=== PATIENT | male | born 1935 | race Caucasian/White ===

== ENCOUNTER 2024-05-02 16:34 | Inpatient (IN) ==
[2024-05-02 17:44] LABS: Basophils # (Auto) 0.01 K/mcL (0.00-0.30); Basophils % (Auto) 0.2 % (0.0-2.0); Eosinophils # (Auto) 0.05 K/mcL (0.00-0.70); Eosinophils % (Auto) 1.1 % (0.0-7.0); Hematocrit 32.9 % (40.1-51.0); Hemoglobin 10.8 g/dL (13.7-17.5); Lymphocytes % (Auto) 10.6 % (15.5-49.0); Mean Cell Volume 100.6 fL (80.0-100.0); Mean Corpuscular HGB Conc 32.8 g/dL (31.0-36.0); Mean Platelet Volume 10.4 fL (8.8-12.5); Monocytes # (Auto) 0.12 K/mcL (0.10-0.90); Monocytes % (Auto) 2.5 % (1.0-12.0); Neutrophils % (Auto) 85.4 % (38.0-78.0); Platelet Count 91 K/mcL (140-440); RBC 3.27 M/mcL (4.63-6.08); WBC 4.7 K/mcL (4.5-11.0)
[2024-05-02 18:04] LABS: Thyroid Stimulating Hormone 0.74 uIU/mL (0.27-5.01)
[2024-05-02 18:14] LABS: ALT/SGPT 23 U/L (<40); AST/SGOT 63 U/L (<40); Albumin 2.9 gm/dL (3.2-5.2); Albumin/Globulin Ratio 0.9 (1.0-2.3); Alkaline Phosphatase 83 U/L (39-117); Bilirubin,Total 0.6 mg/dL (0.1-1.0); Blood Urea Nitrogen 25 mg/dL (8-23); Calcium 9.1 mg/dL (8.6-10.4); Carbon Dioxide 24 mmol/L (22-30); Chloride 98 mmol/L (96-108); Globulin 3.1 gm/dL (2.2-3.7); Glomerular Filtration Rate 38; Glucose 379 mg/dL (70-105); Potassium 4.6 mmol/L (3.3-5.1); Sodium 135 mmol/L (133-145)
[2024-05-02 18:47] LABS: Appearance,Urine Clear (Clear); Bacteria,Urine Few /hpf (0); Bilirubin,Urine Negative (Negative); Color,Urine Yellow; Culture Indicated,Urine No; Glucose,Urine (UA) >=1000 mg/dL (Negative); Ketones,Urine Negative (Negative); Leukocyte Esterase,Urine Negative /uL (Negative); Mucus,Urine Few /hpf; Nitrate,Urine Negative (Negative); Protein,Urine 30 mg/dL (Negative); Specific Gravity,Urine 1.015 (1.000-1.035); Urine Blood Moderate ery/mcL (Negative); Urine Hyaline Cast 3 /lph (0-2); Urine RBC 12 /hpf (0-3); Urine Squamous Epithelial Cell 5 /hpf (0-4); Urine WBC 3 /hpf (0-4); Urobilinogen,Urine Normal
[2024-05-02 18:52] LABS: Free T4 (Free Thyroxine) 1.31 ng/dL (0.93-1.70)
[2024-05-02 20:56] LABS: Uric Acid 4.2 mg/dL (2.5-8.0)
[2024-05-02] MEDS ORDERED: POTASSIUM CHLORIDE 40 MEQ in DEXTROSE 5% IN WATER 500 ML IV PRN (22:10)
[2024-05-02] MEDS ORDERED: DEXTROSE 31 GM ORAL.SUSP PO PRN (22:10)
[2024-05-02] MEDS ORDERED: ACETAMINOPHEN 160 MG/5 ML ORAL.SOL PO PRN (22:10)
[2024-05-02] MEDS ORDERED: POLYETHYLENE GLYCOL 3350 17 GM PACKET PO PRN (22:10)
[2024-05-02] MEDS ORDERED: DEXTROSE 50% 50 ML VIAL IV PRN (22:10)
[2024-05-02] MEDS ORDERED: IPRATROPIUM/ALBUTEROL 3 ML AMPUL.NEB NEB PRN (22:10)
[2024-05-02] MEDS ORDERED: METOPROLOL TARTRATE 5 MG/5 ML VIAL IV PRN (22:10)
[2024-05-02] MEDS ORDERED: MAGNESIUM SULFATE 2 GM/50 ML BAG IV PRN (22:10)
[2024-05-02] MEDS ORDERED: LABETALOL HCL 20 MG/4 ML VIAL IV PRN (22:10)
[2024-05-02] MEDS ORDERED: POTASSIUM CHLORIDE 20 MEQ TABLET PO PRN ×2 (22:10)
[2024-05-02 22:28] LABS: INR 1.1 (0.9-1.1); Partial Thromboplastin Time 31.9 sec (20.0-37.0); Prothrombin Time 14.6 sec (11.9-14.5)
[2024-05-02] MEDS: HEPARIN 5,000 UNIT/ML VIAL IV ONE (22:34)
[2024-05-02] MEDS: HEPARIN SOD,PORK IN 0.45% NACL 25,000 UNIT in PREMIX 1 BAG IV SCH (22:40)
[2024-05-02] MEDS: 0.9 % SODIUM CHLORIDE 1,000 ML IV ONE (22:40)
[2024-05-02] MEDS: HEPARIN SOD,PORK IN 0.45% NACL 500 ML IV ONE (22:49)
[2024-05-02] MEDS: DOCUSATE SODIUM 100 MG CAPSULE PO SCH (23:11)
[2024-05-02] MEDS: INSULIN LISPRO 1 UNIT/0.01 ML UNIT SQ SCH (23:12)
[2024-05-03] MEDS: INSULIN LISPRO 1 UNIT/0.01 ML UNIT SQ ONE ×2 (02:06→03:51)
[2024-05-03 04:58] LABS: Basophils # (Auto) 0.02 K/mcL (0.00-0.30); Basophils % (Auto) 0.3 % (0.0-2.0); Eosinophils # (Auto) 0.05 K/mcL (0.00-0.70); Eosinophils % (Auto) 0.9 % (0.0-7.0); Hemoglobin 10.2 g/dL (13.7-17.5); Lymphocytes # (Auto) 0.83 K/mcL (1.50-4.80); Lymphocytes % (Auto) 14.2 % (15.5-49.0); Mean Cell Volume 101.6 fL (80.0-100.0); Mean Corpuscular HGB Conc 32.9 g/dL (31.0-36.0); Mean Platelet Volume 10.1 fL (8.8-12.5); Monocytes # (Auto) 0.22 K/mcL (0.10-0.90); Monocytes % (Auto) 3.8 % (1.0-12.0); Neutrophils % (Auto) 80.6 % (38.0-78.0); Platelet Count 72 K/mcL (140-440); RBC 3.05 M/mcL (4.63-6.08); Red Cell Distribution Width 14.1 % (11.5-14.5); WBC 5.8 K/mcL (4.5-11.0)
[2024-05-03 05:09] LABS: ALT/SGPT 24 U/L (<40); AST/SGOT 56 U/L (<40); Albumin 2.5 gm/dL (3.2-5.2); Albumin/Globulin Ratio 0.9 (1.0-2.3); Alkaline Phosphatase 74 U/L (39-117); Bilirubin,Direct 0.3 mg/dL (<0.3); Bilirubin,Total 0.5 mg/dL (0.1-1.0); Blood Urea Nitrogen 22 mg/dL (8-23); Calcium 8.5 mg/dL (8.6-10.4); Carbon Dioxide 25 mmol/L (22-30); Chloride 100 mmol/L (96-108); Globulin 2.8 gm/dL (2.2-3.7); Glomerular Filtration Rate 45; Glucose 256 mg/dL (70-105); Lactate Dehydrogenase 222 U/L (135-225); Phosphorous 2.6 mg/dL (2.5-4.5); Potassium 4.3 mmol/L (3.3-5.1); Sodium 134 mmol/L (133-145); Triglycerides 61 mg/dL (<150); Uric Acid 3.8 mg/dL (2.5-8.0)
[2024-05-03] MEDS: INSULIN GLARGINE, HUMAN 1 UNIT/0.01 ML SQ SCH (09:30)
[2024-05-03] MEDS: PRAMIPEXOLE 0.25 MG TABLET PO SCH (09:31)
[2024-05-03] MEDS: GABAPENTIN 400 MG CAPSULE PO SCH ×2 (09:31→21:17)
[2024-05-03] MEDS: LEVOTHYROXINE 50 MCG TABLET PO SCH (09:32)
[2024-05-03] MEDS: FINASTERIDE 5 MG TABLET PO SCH (09:32)
[2024-05-03] MEDS: AMIODARONE HCL 200 MG TABLET PO SCH (09:32)
[2024-05-03] MEDS: INSULIN LISPRO 1 UNIT/0.01 ML UNIT SQ SCH (12:34)
[2024-05-03] MEDS: HEPARIN SOD,PORK IN 0.45% NACL 500 ML IV ONE (14:50)
[2024-05-03] MEDS: ATORVASTATIN 40 MG TABLET PO SCH (21:18)
[2024-05-03] MEDS: DOXAZOSIN 4 MG TABLET PO SCH (21:19)
[2024-05-03] MEDS: LATANOPROST OPHTH DROPS 2.5ML BOTTLE OU SCH (21:19)
[2024-05-03] MEDS: traZODone HCL 100 MG TABLET PO SCH (21:19)
[2024-05-04] MEDS: HEPARIN SOD,PORK IN 0.45% NACL 500 ML IV ONE (05:07)
[2024-05-04 06:43] LABS: Basophils # (Auto) 0.02 K/mcL (0.00-0.30); Basophils % (Auto) 0.3 % (0.0-2.0); Eosinophils # (Auto) 0.05 K/mcL (0.00-0.70); Eosinophils % (Auto) 0.8 % (0.0-7.0); Hematocrit 31.6 % (40.1-51.0); Hemoglobin 10.5 g/dL (13.7-17.5); Lymphocytes # (Auto) 1.04 K/mcL (1.50-4.80); Lymphocytes % (Auto) 16.5 % (15.5-49.0); Mean Cell Volume 100.3 fL (80.0-100.0); Mean Corpuscular HGB Conc 33.2 g/dL (31.0-36.0); Mean Platelet Volume 11.2 fL (8.8-12.5); Monocytes # (Auto) 0.31 K/mcL (0.10-0.90); Monocytes % (Auto) 4.9 % (1.0-12.0); Neutrophils % (Auto) 75.9 % (38.0-78.0); Platelet Count 79 K/mcL (140-440); RBC 3.15 M/mcL (4.63-6.08); WBC 6.3 K/mcL (4.5-11.0)
[2024-05-04 07:05] LABS: ALT/SGPT 28 U/L (<40); AST/SGOT 59 U/L (<40); Albumin 2.5 gm/dL (3.2-5.2); Albumin/Globulin Ratio 0.9 (1.0-2.3); Alkaline Phosphatase 79 U/L (39-117); Bilirubin,Direct 0.2 mg/dL (<0.3); Bilirubin,Total 0.5 mg/dL (0.1-1.0); Blood Urea Nitrogen 19 mg/dL (8-23); Calcium 8.2 mg/dL (8.6-10.4); Carbon Dioxide 24 mmol/L (22-30); Chloride 100 mmol/L (96-108); Globulin 2.8 gm/dL (2.2-3.7); Glomerular Filtration Rate 54; Glucose 259 mg/dL (70-105); Lactate Dehydrogenase 255 U/L (135-225); Phosphorous 2.4 mg/dL (2.5-4.5); Potassium 4.4 mmol/L (3.3-5.1); Sodium 135 mmol/L (133-145); Triglycerides 68 mg/dL (<150); Uric Acid 3.7 mg/dL (2.5-8.0)
[2024-05-04] MEDS: APIXABAN 5 MG TABLET PO SCH (08:23)
[2024-05-04] MEDS: ALBUMIN HUMAN 12.5 GM/50 ML VIAL IV ONE (09:49)
[2024-05-04] MEDS: FUROSEMIDE 40 MG/4 ML VIAL IV ONE (11:21)
[2024-05-04] MEDS: INSULIN GLARGINE, HUMAN 1 UNIT/0.01 ML SQ SCH (20:28)
[2024-05-05 06:51] LABS: ALT/SGPT 45 U/L (<40); AST/SGOT 149 U/L (<40); Albumin 2.6 gm/dL (3.2-5.2); Albumin/Globulin Ratio 0.9 (1.0-2.3); Alkaline Phosphatase 82 U/L (39-117); Bilirubin,Direct 0.2 mg/dL (<0.3); Bilirubin,Total 0.5 mg/dL (0.1-1.0); Blood Urea Nitrogen 22 mg/dL (8-23); Calcium 8.2 mg/dL (8.6-10.4); Carbon Dioxide 27 mmol/L (22-30); Chloride 99 mmol/L (96-108); Globulin 2.9 gm/dL (2.2-3.7); Glomerular Filtration Rate 49; Glucose 269 mg/dL (70-105); Lactate Dehydrogenase 308 U/L (135-225); Phosphorous 2.7 mg/dL (2.5-4.5); Sodium 136 mmol/L (133-145); Triglycerides 78 mg/dL (<150); Uric Acid 4.1 mg/dL (2.5-8.0)
[2024-05-05] MEDS: FUROSEMIDE 40 MG/4 ML VIAL IV SCH (10:11)
[2024-05-05] MEDS: ACETAMINOPHEN 325 MG TABLET PO PRN (11:12)
[2024-05-05] MEDS: INSULIN LISPRO 1 UNIT/0.01 ML UNIT SQ SCH (16:49)
[2024-05-05] MEDS ORDERED: INSULIN LISPRO 1 UNIT/0.01 ML UNIT SQ SCH (17:00)
[2024-05-06] MEDS ORDERED: INSULIN LISPRO 1 UNIT/0.01 ML UNIT SQ SCH (08:10)
[2024-05-06] MEDS: INSULIN LISPRO 1 UNIT/0.01 ML UNIT SQ SCH ×2 (09:10→09:51)
[2024-05-06] MEDS: acetaZOLAMIDE SOD 500 MG VIAL IV ONE (14:41)
[2024-05-06] MEDS: FUROSEMIDE 40 MG/4 ML VIAL IV SCH (14:41)
[2024-05-06] MEDS: LIDOCAINE 4% TOP PATCH TOPICAL SCH (22:54)
[2024-05-07] MEDS: acetaZOLAMIDE SOD 500 MG VIAL IV SCH (08:37)
[2024-05-07] MEDS: INSULIN LISPRO 1 UNIT/0.01 ML UNIT SQ SCH (11:56)
[2024-05-07] MEDS: METOLAZONE 2.5 MG TABLET PO ONE (13:37)
[2024-05-07] MEDS: FUROSEMIDE 40 MG/4 ML VIAL IV SCH (14:00)
[2024-05-07] MEDS: SENNOSIDES 1 TABLET PO PRN (20:21)
[2024-05-07] MEDS: INSULIN GLARGINE, HUMAN 1 UNIT/0.01 ML SQ SCH (20:54)
[2024-05-08 06:58] LABS: ALT/SGPT 91 U/L (<40); AST/SGOT 124 U/L (<40); Albumin 2.9 gm/dL (3.2-5.2); Albumin/Globulin Ratio 0.9 (1.0-2.3); Alkaline Phosphatase 97 U/L (39-117); Bilirubin,Direct 0.2 mg/dL (<0.3); Bilirubin,Total 0.6 mg/dL (0.1-1.0); Blood Urea Nitrogen 32 mg/dL (8-23); Calcium 8.8 mg/dL (8.6-10.4); Carbon Dioxide 32 mmol/L (22-30); Chloride 91 mmol/L (96-108); Globulin 3.2 gm/dL (2.2-3.7); Glomerular Filtration Rate 45; Glucose 254 mg/dL (70-105); Lactate Dehydrogenase 324 U/L (135-225); Phosphorous 4.7 mg/dL (2.5-4.5); Potassium 3.2 mmol/L (3.3-5.1); Sodium 134 mmol/L (133-145); Triglycerides 86 mg/dL (<150); Uric Acid 6.1 mg/dL (2.5-8.0)
[2024-05-08 07:04] LABS: Basophils # (Auto) 0.02 K/mcL (0.00-0.30); Basophils % (Auto) 0.2 % (0.0-2.0); Eosinophils # (Auto) 0.04 K/mcL (0.00-0.70); Eosinophils % (Auto) 0.5 % (0.0-7.0); Hematocrit 35.6 % (40.1-51.0); Lymphocytes # (Auto) 1.54 K/mcL (1.50-4.80); Lymphocytes % (Auto) 19.1 % (15.5-49.0); Mean Cell Volume 98.1 fL (80.0-100.0); Mean Corpuscular HGB Conc 33.7 g/dL (31.0-36.0); Mean Platelet Volume 11.2 fL (8.8-12.5); Monocytes # (Auto) 0.57 K/mcL (0.10-0.90); Monocytes % (Auto) 7.1 % (1.0-12.0); Neutrophils % (Auto) 70.1 % (38.0-78.0); Platelet Count 181 K/mcL (140-440); RBC 3.63 M/mcL (4.63-6.08); Red Cell Distribution Width 13.8 % (11.5-14.5); WBC 8.1 K/mcL (4.5-11.0)
== END 2024-05-08 14:25 | DRG 300 ==
LOC: ED 16:34 → ICU 22:03 → MEDSUR 05-06 16:40
PROVIDERS: ADMIT Internal Medicine; ATTEND Internal Medicine

== ENCOUNTER 2024-06-08 09:23 | Observation (INO) ==
[2024-06-08] MEDS: LACTATED RINGERS 1,000 ML IV ONE (09:58)
[2024-06-08 10:23] LABS: POC Calcium, Ionized 1.18 (1.16-1.32); POC Creatinine 1.3 (0.6-1.2)
[2024-06-08 10:29] LABS: Basophils # (Auto) 0.01 K/mcL (0.00-0.30); Basophils % (Auto) 0.2 % (0.0-2.0); Eosinophils # (Auto) 0.01 K/mcL (0.00-0.70); Eosinophils % (Auto) 0.2 % (0.0-7.0); Lymphocytes # (Auto) 0.58 K/mcL (1.50-4.80); Lymphocytes % (Auto) 9.2 % (15.5-49.0); Mean Cell Volume 104.6 fL (80.0-100.0); Mean Corpuscular HGB Conc 32.4 g/dL (31.0-36.0); Mean Platelet Volume 11.6 fL (8.8-12.5); Monocytes # (Auto) 0.33 K/mcL (0.10-0.90); Monocytes % (Auto) 5.2 % (1.0-12.0); Neutrophils % (Auto) 85.2 % (38.0-78.0); Platelet Count 138 K/mcL (140-440); RBC 3.25 M/mcL (4.63-6.08); WBC 6.3 K/mcL (4.5-11.0)
[2024-06-08 10:54] LABS: ALT/SGPT 16 U/L (<40); AST/SGOT 27 U/L (<40); Albumin 3.2 gm/dL (3.2-5.2); Albumin/Globulin Ratio 1.2 (1.0-2.3); Alkaline Phosphatase 85 U/L (39-117); Bilirubin,Total 0.6 mg/dL (0.1-1.0); Blood Urea Nitrogen 25 mg/dL (8-23); Carbon Dioxide 25 mmol/L (22-30); Chloride 101 mmol/L (96-108); Globulin 2.7 gm/dL (2.2-3.7); Glomerular Filtration Rate 49; Glucose 355 mg/dL (70-105); Potassium 5.2 mmol/L (3.3-5.1); Sodium 137 mmol/L (133-145)
[2024-06-08 12:24] LABS: Thyroid Stimulating Hormone 1.19 uIU/mL (0.27-5.01)
[2024-06-08 13:43] LABS: ABG Methemoglobin 0.3 % (0.4-1.5); Total Hemoglobin 12.1 gm/Dl (13.5-16.5); VBG Base Excess 1 (-2-3); VBG HCO3 26.8 mmol/L (24.0-28.0); VBG Oxygen Saturation 75.8 % (40.0-70.0); VBG PCO2 47.1 mmHg (41.0-51.0); VBG PH 7.37 U (7.32-7.42); VBG PO2 45.2 mmHg (25.0-40.0); VBG Total CO2 28.2 mmol/L (25.0-29.0)
[2024-06-08] MEDS ORDERED: ONDANSETRON 4 MG/2 ML VIAL IV PRN (14:48)
[2024-06-08] MEDS ORDERED: ACETAMINOPHEN 325 MG TABLET PO PRN (14:48)
[2024-06-08] MEDS ORDERED: DEXTROSE 50% 50 ML VIAL IV PRN ×2 (14:48→18:30)
[2024-06-08] MEDS ORDERED: DEXTROSE 31 GM ORAL.SUSP PO PRN ×2 (14:48→18:30)
[2024-06-08] MEDS: acetaZOLAMIDE SOD 500 MG VIAL IV ONE (15:35)
[2024-06-08] MEDS: 0.9 % SODIUM CHLORIDE 10 ML SYRINGE IV SCH (15:35)
[2024-06-08] MEDS: FUROSEMIDE 40 MG/4 ML VIAL IV ONE (15:35)
[2024-06-08] MEDS: INSULIN LISPRO 1 UNIT/0.01 ML UNIT SQ SCH ×2 (16:57→21:01)
[2024-06-08] MEDS ORDERED: GABAPENTIN 400 MG CAPSULE PO SCH (18:30)
[2024-06-08] MEDS: FUROSEMIDE 20 MG TABLET PO SCH (20:59)
[2024-06-08] MEDS: ATORVASTATIN 40 MG TABLET PO SCH (20:59)
[2024-06-08] MEDS: GABAPENTIN 400 MG CAPSULE PO SCH (20:59)
[2024-06-08] MEDS: DOCUSATE SODIUM 100 MG CAPSULE PO SCH (21:00)
[2024-06-08] MEDS: SENNOSIDES 1 TABLET PO SCH (21:00)
[2024-06-08] MEDS: APIXABAN 5 MG TABLET PO SCH ×2 (21:00)
[2024-06-08] MEDS: PRAMIPEXOLE 0.25 MG TABLET PO SCH (21:00)
[2024-06-08] MEDS: LEVOTHYROXINE 50 MCG TABLET PO SCH (21:00)
[2024-06-08] MEDS: traZODone HCL 100 MG TABLET PO SCH (21:01)
[2024-06-08] MEDS: LATANOPROST OPHTH DROPS 2.5ML BOTTLE OU SCH (21:02)
[2024-06-09] MEDS: GABAPENTIN 400 MG CAPSULE PO SCH (08:18)
[2024-06-09] MEDS: AMIODARONE HCL 200 MG TABLET PO SCH (08:19)
[2024-06-09] MEDS: LOSARTAN 25 MG TABLET PO SCH (08:20)
[2024-06-09] MEDS: INSULIN GLARGINE, HUMAN 1 UNIT/0.01 ML SQ SCH (08:20)
[2024-06-09] MEDS ORDERED: [UNRECOGNIZED DRUG - OTHER] PO SCH (09:00)
[2024-06-09] MEDS ORDERED: [UNRECOGNIZED DRUG - OTHER] PO SCH (09:00)
[2024-06-09] MEDS ORDERED: INSULIN GLARGINE, HUMAN 1 UNIT/0.01 ML SQ SCH (09:00)
[2024-06-09 09:22] LABS: Basophils # (Auto) 0.02 K/mcL (0.00-0.30); Basophils % (Auto) 0.3 % (0.0-2.0); Eosinophils # (Auto) 0.16 K/mcL (0.00-0.70); Eosinophils % (Auto) 2.3 % (0.0-7.0); Hematocrit 32.1 % (40.1-51.0); Hemoglobin 10.2 g/dL (13.7-17.5); Lymphocytes # (Auto) 1.55 K/mcL (1.50-4.80); Lymphocytes % (Auto) 22.7 % (15.5-49.0); Mean Cell Volume 105.9 fL (80.0-100.0); Mean Corpuscular HGB Conc 31.8 g/dL (31.0-36.0); Monocytes % (Auto) 2.9 % (1.0-12.0); Neutrophils % (Auto) 71.7 % (38.0-78.0); Platelet Count 143 K/mcL (140-440); RBC 3.03 M/mcL (4.63-6.08); Red Cell Distribution Width 16.2 % (11.5-14.5); WBC 6.8 K/mcL (4.5-11.0)
[2024-06-09 09:37] LABS: ALT/SGPT 15 U/L (<40); AST/SGOT 20 U/L (<40); Albumin 3.2 gm/dL (3.2-5.2); Albumin/Globulin Ratio 1.3 (1.0-2.3); Alkaline Phosphatase 77 U/L (39-117); Bilirubin,Direct 0.2 mg/dL (<0.3); Bilirubin,Total 0.6 mg/dL (0.1-1.0); Blood Urea Nitrogen 27 mg/dL (8-23); Calcium 8.5 mg/dL (8.6-10.4); Carbon Dioxide 26 mmol/L (22-30); Chloride 100 mmol/L (96-108); Globulin 2.5 gm/dL (2.2-3.7); Glomerular Filtration Rate 49; Glucose 198 mg/dL (70-105); Lactate Dehydrogenase 177 U/L (135-225); Phosphorous 4.2 mg/dL (2.5-4.5); Potassium 3.8 mmol/L (3.3-5.1); Sodium 136 mmol/L (133-145); Triglycerides 107 mg/dL (<150); Uric Acid 5.9 mg/dL (2.5-8.0)
[2024-06-09] MEDS: POTASSIUM CHLORIDE 10 MEQ TABLET PO SCH (10:28)
[2024-06-09 11:42] LABS: Estimated Average Glucose(eAG) 212 mg/dL
[2024-06-09] MEDS ORDERED: DEXTROSE 50% 50 ML VIAL IV PRN (12:49)
[2024-06-09] MEDS ORDERED: DEXTROSE 31 GM ORAL.SUSP PO PRN (12:49)
[2024-06-09] MEDS: INSULIN LISPRO 1 UNIT/0.01 ML UNIT SQ SCH (17:05)
[2024-06-10 07:17] LABS: ALT/SGPT 15 U/L (<40); AST/SGOT 26 U/L (<40); Albumin 3.1 gm/dL (3.2-5.2); Albumin/Globulin Ratio 1.2 (1.0-2.3); Alkaline Phosphatase 80 U/L (39-117); Bilirubin,Direct < 0.2 mg/dL (0-0.3); Bilirubin,Total 0.3 mg/dL (0.1-1.0); Blood Urea Nitrogen 31 mg/dL (8-23); Calcium 8.2 mg/dL (8.6-10.4); Carbon Dioxide 25 mmol/L (22-30); Chloride 103 mmol/L (96-108); Globulin 2.5 gm/dL (2.2-3.7); Glomerular Filtration Rate 60; Glucose 96 mg/dL (70-105); Lactate Dehydrogenase 207 U/L (135-225); Phosphorous 3.9 mg/dL (2.5-4.5); Potassium 3.9 mmol/L (3.3-5.1); Sodium 137 mmol/L (133-145); Triglycerides 102 mg/dL (<150); Uric Acid 6.2 mg/dL (2.5-8.0)
[2024-06-10 07:23] LABS: Basophils # (Auto) 0.03 K/mcL (0.00-0.30); Basophils % (Auto) 0.4 % (0.0-2.0); Eosinophils # (Auto) 0.21 K/mcL (0.00-0.70); Eosinophils % (Auto) 2.8 % (0.0-7.0); Hematocrit 31.7 % (40.1-51.0); Hemoglobin 9.7 g/dL (13.7-17.5); Lymphocytes # (Auto) 1.95 K/mcL (1.50-4.80); Lymphocytes % (Auto) 26.3 % (15.5-49.0); Mean Cell Volume 109.7 fL (80.0-100.0); Mean Corpuscular HGB Conc 30.6 g/dL (31.0-36.0); Mean Platelet Volume 10.9 fL (8.8-12.5); Monocytes # (Auto) 0.42 K/mcL (0.10-0.90); Monocytes % (Auto) 5.7 % (1.0-12.0); Neutrophils % (Auto) 64.7 % (38.0-78.0); Platelet Count 143 K/mcL (140-440); RBC 2.89 M/mcL (4.63-6.08); Red Cell Distribution Width 15.6 % (11.5-14.5); WBC 7.4 K/mcL (4.5-11.0)
== END 2024-06-10 14:17 | disposition home health service (06) ==
LOC: MEDSUR 09:23 → ED 09:23 → MEDSUR 14:59
PROVIDERS: ADMIT Internal Medicine; ATTEND Internal Medicine